=== PATIENT | male | born 1990 | race African-American/Black ===

== ENCOUNTER 2018-01-14 13:58 | Emergency (ER) | payer OTHER ==
[~2018-01-14] VITALS: Ht 182.9 cm; Wt 90.7 kg
[~2018-01-14 13:58] MED LIST: DEPAKOTE 250MG250 M1 PO; DEPAKOTE ER500 MG PO; DEPAKOTE500 MG; DIVALPROEX SOD500 M1 PO
[2018-01-14 14:13] LABS: HEMATOCRIT 47.7 % (42.0-52.0); HEMOGLOBIN 15.5 gm/dL (14.0-18.0); MCH 28.2 pg (26.0-34.0); MCHC 32.6 g/dL (28.0-37.0); MCV 86.5 fL (80.0-100.0); RBC 5.51 mil/uL (4.50-6.00); RDW 13.7 % (10.5-14.5)
[2018-01-14 14:23] LABS: CALCIUM 8.9 mg/dL (8.5-10.1); CREATININE 1.8 mg/dL (0.7-1.3); POTASSIUM 3.8 mmol/L (3.5-5.1)
== END 2018-01-14 15:01 | disposition home or self-care (01) ==
LOC: ER 13:58
PROVIDERS: Emergency Medicine
DX: G40.909 Epilepsy, unspecified, not intractable, without status epilepticus (principal); F17.210 Nicotine dependence, cigarettes, uncomplicated

== ENCOUNTER → 2018-02-03 | Outpatient (CLI) | payer OTHER | LOC: MRI 09:50 | DX: R56.9 Unspecified convulsions (principal); R41.82 Altered mental status, unspecified ==

== ENCOUNTER 2019-03-19 19:34 | Inpatient (IN) | payer OTHER ==
[~2019-03-19] VITALS: Ht 180.3 cm; Wt 97.1 kg
[2019-03-19 19:36] VITALS: BP 118/72
[2019-03-19] MEDS ORDERED: DEPAKOTE ER500 MG PO (19:43)
--- NOTE | 2019-03-19 20:09 | NUR ---
SO REPORTS THAT PT IS NOT COMPLIANT WITH MEDICATION REGIMEN
[2019-03-19 22:33] VITALS: BP 128/66
[2019-03-19 23:31] VITALS: BP 128/68
--- NOTE | 2019-03-20 02:07 | NUR ---
NEW PATIENT AT 0000. PAIN CONTROLLED THIS SHIFT. NO SEIZURES ACTIVITY AT THIS TIME. FALL PRECAUTION AND SEIZURE PRECAUTION IN PLACE. FAMILY AT BED SIDE.PATIENT HAD A SHOWER. PATIENT ORIENTED TO THE ROOM AND HOSPITAL. PATIENT CALM AND COOEPRATIVE WITH MEDS AND CARE. PATIENT TOLD THIS NURSE HE HAS NOT BEEN TAKING SEIZURES MEDICATION BECAUSE HE CANNOT AFFORD IT, INSOLE DOUBLER CONSULTED. PATIENT IN BED ASLEEP AT THIS TIME BREATHING REGULAR AND UNLABOURED.
[2019-03-20 05:41] VITALS: BP 110/63
[2019-03-20 08:45] VITALS: BP 129/78
[2019-03-20 13:08] LABS: HEMATOCRIT 42.6 % (42.0-52.0); HEMOGLOBIN 14.3 gm/dL (14.0-18.0); MCH 27.7 pg (26.0-34.0); MCHC 33.7 g/dL (28.0-37.0); MCV 82.4 fL (80.0-100.0); RBC 5.17 mil/uL (4.50-6.00); RDW 13.1 % (10.5-14.5); WBC 5.7 thou/uL (4.0-11.0)
[2019-03-20 13:18] LABS: CALCIUM 8.3 mg/dL (8.5-10.1); CREATININE 1.3 mg/dL (0.7-1.3)
[2019-03-20 13:24] LABS: ALBUMIN 3.2 g/dL (3.4-5.0); TOTAL BILIRUBIN 0.3 mg/dL (<0.1-1.0); TOTAL PROTEIN 5.9 g/dL (6.4-8.2)
--- NOTE | 2019-03-20 14:03 | NUR ---
PT ADMITTED RELATED TO SEIZURES. CM REVIEWED CHART AND SPOKE WITH CARE TEAM. CM MET WITH PT AT BEDSIDE THIS DAY. PT MET WITH PT AND HIS GIRLFRIEND AT BEDSIDE THIS DAY. PT INDICATED HE LIVES IN AN APARTMENT WITH HIS GIRLFRIEND WITH 20 STEPS TO ENTER AND NO STEPS INSIDE. 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 PT INDICATED NO DME OR HH HX. PT INDICATED HE HAD DIFFICULTY PAYING TO REFILL HIS DEPAKOTE AND MAY NEED SOME ASSISTANCE IN FILLING IT UPON DC. PT INDICATED HE ANTICPATES RETURNING HOME ONCE MEDICALLY STABLE. CM TO FOLLOW INDICATED WITH DC PLANNING.
[2019-03-20 15:15] VITALS: BP 134/66
[2019-03-20] MEDS ORDERED: DEPAKOTE500 MG PO (16:07)
[2019-03-20 16:23] VITALS: BP 134/66
--- NOTE | 2019-03-20 16:50 | NUR ---
ASSUMED CARE 0700. VSS, PAIN MANAGED WITH MEDICATIONS, COMPLIANT WITH CARES. EDUCATED REGARDING FALL PRECAUTIONS. CALLS FOR ASSISTANCE. DC HOME WITH SCRIPTS.EDUCATED NO DRIVING FOR 6MONTHS AND FOLLOW UP WITH DR TANNER IN 2 WEEKS.
--- NOTE | 2019-03-20 17:05 | NUR ---
CARE TEAM INDICATED THAT PT IS MEDICALLY STABLE TO DISHCARGE HOME THIS DAY. SCRIPT WAS WRITTEN FOR DEPOKOTE AND IT HAS BEEN TAKEN TO THE OP PHARMACY FOR THEM TO SIMMONS IT OUT THROUGH PT'S INSURANCE. IF PT IS ISN'T CAPABLE OF PAYING FOR IT CASE MANAGEMENT MAY VOUCHER MED.
--- NOTE | 2019-03-22 19:10 | HC ---
[facility] [address] [address] CONSULTATION Name: ESTHELA HARMON Room #: 451-P [facility] IN .R.#: [id number] Admission: 03/19/19 ������������������ Attend Phys: Zachariah Castillo MD Discharge: 03/20/19 ������������������ Date of : 89 Report #: [id number] THIS REPORT FOR: //name// CC: VETO physician/PCP Zachariah Castillo NO PCP Gamal Valentine DATE OF SERVICE: 03/20/2019 HISTORY OF PRESENT ILLNESS: This is a 28-year-old male patient who is known to me from the clinic. This patient has seizure disorder and he has extreme amount of noncompliance. I have discussed with him the consequences of noncompliance including , but he still is not compliant. He said he was running out of his medication about a week ago and he started taking half the dose of Depakote. He had a seizure event to [place] and they gave him some extra Depakote and then, he was brought here but his level was still 30 and they gave him some more Depakote. He has not had any seizure after he came here. The patient smokes. He drinks alcohol and he uses marijuana on a regular basis. REVIEW OF SYSTEMS: Positive for seizures in the past. We have worked up this patient in the past. He had MRIs in the past but his biggest problem is noncompliance. PAST MEDICAL HISTORY: Positive for seizure. FAMILY HISTORY: Negative for early age stroke. SOCIAL HISTORY: He drinks, he smokes and he smokes marijuana. PHYSICAL EXAMINATION: NEUROLOGICAL: Indicates he is alert, responsive, oriented and able to follow simple and complex command. His cranial nerve examination appeared to be unremarkable. His strength, sensation, reflexes and tone are symmetrical. He has no meningeal sign. CARDIAC: Unremarkable. RESPIRATORY: Unremarkable. VITAL SIGNS: His blood pressure is 129/78, respiration is 18, pulse is 66 and temperature is 98. LABORATORY DATA: His Depakote level was 30. RADIOLOGICAL DATA: Apparently, he was complaining of neck pain when he came in and they did C-spine films on him and that does not show any abnormality. IMPRESSION: Breakthrough seizure because of noncompliance and very unhealthy [facility] [address] [place] [address] CONSULTATION Name: ESTHELA HARMON Room #: 451-P [facility] IN [facility]#: [id number] Admission: 03/19/19 ������������������ Attend Phys: Zachariah Castillo MD Discharge: 03/20/19 ������������������ Date of : 89 Report #: [id number] habits. I had a long talk with this patient. I told him that he needs to stop drinking alcohol altogether. He should not smoke marijuana and he should not smoke tobacco. Even more importantly, he must take his seizure medications properly and he must come for a regular followup. I told him he needs to take seizure precautions and I discussed those with him. I told him that he cannot drive for at least 6 months. I recommended further workup with an electroencephalogram and a repeat imaging study of the brain looked for any trigger. He refused that. He is competent to make his decision but he does not want to proceed with any electroencephalogram or neuroimaging. RECOMMENDATIONS: 1. We will check the Depakote level and he is agreeable for that. 2. He wants to go home. He is taking ER Depakote. That is more expensive. I will suggest putting him on 500 mg p.o. t.i.d. of Depakote. That is somewhat cheaper and he should follow up with us in about 2 weeks and then we can readjust his Depakote depending upon the levels. I once again discussed with him the consequences of noncompliance including the consequences of . He understands that and I hope he will follow that advice. ��������������������������������������������� <ELECTRONICALLY SIGNED> ���������������������������������������� By: Gamal Valentine MD ��������������������������������������������� 03/22/19 1910 [id number] Gamal Valentine MD /nt
== END 2019-03-20 17:41 | disposition home or self-care (01) | DRG 101 ==
LOC: ER 19:34 → 4W 22:09 → EROBS 22:09 → 4W 22:59
PROVIDERS: Psychiatry & Neurology Neuromuscular Medicine; ADMIT Internal Medicine
DX: G40.901 Epilepsy, unspecified, not intractable, with status epilepticus (principal); F17.210 Nicotine dependence, cigarettes, uncomplicated; F12.10 Cannabis abuse, uncomplicated; Z79.899 Other long term (current) drug therapy
CPT/HCPCS: 10045

== ENCOUNTER 2020-09-05 14:35 | Emergency (ER) | payer OTHER ==
[~2020-09-05] VITALS: Ht 172.7 cm; Wt 104.3 kg
[~2020-09-05 14:35] MED LIST changes: +DEPAKOTE500 MG PO
[2020-09-05 15:21] LABS: ABSOLUTE NEUTROPHILS 7.2 thou/uL (1.4-8.2); BASOPHILS 0.4 % (0.0-2.0); EOSINOPHILS 0.2 % (0.0-3.0); HEMATOCRIT 46.6 % (42.0-52.0); HEMOGLOBIN 15.2 gm/dL (14.0-18.0); LYMPHOCYTES 12.3 % (24.0-44.0); MCH 28.4 pg (26.0-34.0); MCHC 32.7 g/dL (28.0-37.0); MCV 86.9 fL (80.0-100.0); MONOCYTES 7.1 % (1.0-8.0); RBC 5.36 mil/uL (4.50-6.00); RDW 14.4 % (10.5-14.5)
[2020-09-05 15:24] LABS: CALCIUM 9.3 mg/dL (8.5-10.1); CREATININE 1.6 mg/dL (0.7-1.3)
[2020-09-05 16:16] LABS: LARGE PLATELETS RARE; PLATELET COUNT 173 thou/uL (150-400)
[2020-09-05 16:30] VITALS: BP 122/74
== END 2020-09-05 16:30 | disposition home or self-care (01) ==
LOC: ER 14:35
PROVIDERS: Nurse Practitioner
DX: G40.909 Epilepsy, unspecified, not intractable, without status epilepticus (principal); F17.210 Nicotine dependence, cigarettes, uncomplicated; Z79.899 Other long term (current) drug therapy

== ENCOUNTER → 2020-10-02 | Outpatient (CLI) | payer OTHER | LOC: MRI 12:09 | PROVIDERS: ATTEND Nurse Practitioner | DX: G40.909 Epilepsy, unspecified, not intractable, without status epilepticus (principal) ==